=== PATIENT | female | born 1955 | race Caucasian/White ===

== ENCOUNTER 2017-10-14 07:11 | Emergency (ER) | payer BC, OTHER, SELFPAY | END 2017-10-14 08:20 | disposition home or self-care (01) | LOC: ERS 07:11 | DX: S86.911A Strain of unspecified muscle(s) and tendon(s) at lower leg level, right leg, initial encounter (principal); F17.210 Nicotine dependence, cigarettes, uncomplicated; X50.0XXA Overexertion from strenuous movement or load, initial encounter; Y93.E3 Activity, vacuuming | CPT/HCPCS: 99283 ==

== ENCOUNTER 2018-10-31 09:48 | Outpatient (CLI) | payer MEDICARE ==
--- NOTE | 2018-10-31 12:34 | CT ---
LOW DOSE SCREENING LUNG ct: HISTORY: Current smoker, with a 43, 1 pack a day history. COMPARISON: None. TECHNIQUE: A noncontrast low-dose screening CT of the chest was performed following institution protocol. Sagit lester and coronal reformatted images are submitted for interpretation. FINDINGS: Lung Screening Specific: Negative. There is no evidence of a suspicious mass or consolidation. There is no evidence of prima ry lung cancer. Potential Significant Incidental (Lung RADS category S): None. Other Incidentals: There are bilateral breast implants present. The right implant appears to be smaller than the contra lateral side suggesting rupture. There is calcification of both implants. Calcified granulomas in t he mediastinum and right hilum are noted. Pulmonary Incidentals: None. IMPRESSION: 1. Lung RADS category 1: Negative. No evidence of primary lung cancer. 2. Lung RADS category S: Negative. No new or unknown potential significance incidentals requiring urgent additional evaluation. 3. Additional incidentals as above. POS: [facility]
== END 2018-10-31 09:49 | disposition home or self-care (01) ==
LOC: CT 09:48
PROVIDERS: ATTEND Family Medicine
DX: F17.210 Nicotine dependence, cigarettes, uncomplicated (principal); J84.10 Pulmonary fibrosis, unspecified; Z98.82 Breast implant status
CPT/HCPCS: 80053; 80061; 80184; 85025; 86803; G0297; 36415

== ENCOUNTER 2020-10-13 11:38 | Outpatient (CLI) | payer MEDICARE ==
--- NOTE | 2020-10-13 12:06 | RAD ---
EXAM: XR Hip Rt 2-3 View PROVIDED CLINICAL HISTORY: Pain FINDINGS: There is no evidence for fracture or other acute osseous abnormality. Alignment appears anatomic. Kendal nt spaces appear preserved. IMPRESSION: No evidence for an acute osseous abnormality or significant arthropathy.
== END 2020-10-13 11:39 | disposition home or self-care (01) ==
LOC: BICRAD 11:38
PROVIDERS: ATTEND Family Medicine
DX: M25.551 Pain in right hip (principal)

== ENCOUNTER 2021-07-02 10:57 | Outpatient (CLI) | payer MEDICARE | END 2021-07-02 10:58 | disposition home or self-care (01) | LOC: BICCT 10:57 | PROVIDERS: ATTEND Family Medicine | DX: I82.409 Acute embolism and thrombosis of unspecified deep veins of unspecified lower extremity (principal); R10.2 Pelvic and perineal pain; R39.198 Other difficulties with micturition; R19.8 Other specified symptoms and signs involving the digestive system and abdomen; E27.8 Other specified disorders of adrenal gland | CPT/HCPCS: 74177 ==

== ENCOUNTER 2022-06-09 09:15 | Outpatient (CLI) | payer MEDICARE | END 2022-06-09 09:16 | disposition home or self-care (01) | LOC: BICMAMMO 09:15 | PROVIDERS: ATTEND Family Medicine | DX: Z12.2 Encounter for screening for malignant neoplasm of respiratory organs (principal); R92.8 Other abnormal and inconclusive findings on diagnostic imaging of breast; Z87.891 Personal history of nicotine dependence | CPT/HCPCS: 71271; 77066; G0279 ==

== ENCOUNTER 2022-08-25 10:45 | Outpatient (CLI) | payer MEDICARE | END 2022-08-25 10:46 | disposition home or self-care (01) | LOC: BICRAD 10:45 | PROVIDERS: ATTEND Nurse Practitioner Family | DX: M54.50 Low back pain, unspecified (principal); M47.816 Spondylosis without myelopathy or radiculopathy, lumbar region; M41.9 Scoliosis, unspecified | CPT/HCPCS: 72100 ==

== ENCOUNTER 2023-03-24 11:06 | Outpatient (CLI) | payer MEDICARE ==
[2023-03-24] MEDS ORDERED: Magnevist 469MG/ML 20 ML VIAL ONE (15:49)
== END 2023-03-24 11:07 | disposition home or self-care (01) ==
LOC: MRI 11:06
PROVIDERS: ATTEND Psychiatry & Neurology Neurology
DX: G40.209 Localization-related (focal) (partial) symptomatic epilepsy and epileptic syndromes with complex partial seizures, not intractable, without status epilepticus (principal); G93.89 Other specified disorders of brain; Z98.890 Other specified postprocedural states
CPT/HCPCS: 70553; A9579

== ENCOUNTER 2023-12-14 13:39 | Outpatient (CLI) | payer MEDICARE | END 2023-12-14 13:40 | disposition home or self-care (01) | LOC: MRI 13:39 | PROVIDERS: ATTEND Psychiatry & Neurology Neurology | DX: G93.9 Disorder of brain, unspecified (principal); J39.2 Other diseases of pharynx; E34.8 Other specified endocrine disorders; R90.89 Other abnormal findings on diagnostic imaging of central nervous system; Z98.890 Other specified postprocedural states | CPT/HCPCS: 70553 ==

== ENCOUNTER 2025-06-06 09:06 | Outpatient (CLI) | payer MEDICARE | END 2025-06-06 09:07 | disposition home or self-care (01) | LOC: BICMAMMO 09:06 | PROVIDERS: ATTEND Nurse Practitioner Family | DX: Z12.31 Encounter for screening mammogram for malignant neoplasm of breast (principal); Z12.2 Encounter for screening for malignant neoplasm of respiratory organs; M81.0 Age-related osteoporosis without current pathological fracture; Z78.0 Asymptomatic menopausal state; Z98.82 Breast implant status; Z87.891 Personal history of nicotine dependence | CPT/HCPCS: 71271; 77063; 77067; 77080 ==